=== PATIENT | male | born 1965 | race Two or more races ===

== ENCOUNTER 2023-08-08 13:01 | Outpatient (CLI) | payer OTHER | END 2023-08-08 13:14 | disposition home or self-care (01) | LOC: RAD 13:01 | PROVIDERS: ATTEND Neurological Surgery | DX: M54.2 Cervicalgia (principal); M43.12 Spondylolisthesis, cervical region ==

== ENCOUNTER 2024-01-07 14:39 | Outpatient (CLI) | payer OTHER | END 2024-01-07 14:47 | disposition home or self-care (01) | LOC: RAD 14:39 | PROVIDERS: ATTEND Internal Medicine Rheumatology | DX: M06.09 Rheumatoid arthritis without rheumatoid factor, multiple sites (principal) ==